=== PATIENT | male | born 1995 | race Caucasian/White ===

== ENCOUNTER 2018-04-19 00:19 | Emergency (ER) | payer SELFPAY ==
[2018-04-19] MEDS ORDERED: Dexamethasone IV* 4 MG/ML 1 ML (4 MG) IM ONE (01:27)
[2018-04-19 02:16] VITALS: BP 134/86
--- NOTE | 2018-04-19 02:30 | ED ---
Luigi Johnson Natalie, scribed for Colby Ware MD on 04/19/18 at 0118 . Throat Pain/Nasal Congestion - HPI Summary HPI Summary: The patient is a 22 y/o M presenting to the ED c/o sore throat with loss of voice starting last night. He has difficulty speaking due to loss of voice. He states it's "the worst sore throat he's ever had." The pain is aggravated by speaking. Pt denies fevers. He additionally c/o slight swelling and numbness in right foot that started in his foot and has moved up through his right ankle. The pain is aggravated with ambulation. - History of Current Complaint Chief Complaint: EDGeneral Time Seen by Provider: 04/19/18 00:56 Hx Obtained From: Patient Onset/Duration: Sudden Onset, Lasting Days, Still Present Severity: Moderate Associated Signs And Symptoms: Positive: Hoarseness Cough: None - Allergies/Home Medications Allergies/Adverse Reactions: Allergies Allergy/AdvReac Type Severity Reaction Status Date / Time No Known Allergies Allergy Verified 04/19/18 00:29 PMH/Surg Hx/FS Hx/Imm Hx Endocrine/Hematology History: Denies: Hx Diabetes Cardiovascular History: Denies: Hx Hypertension Infectious Disease History: No Infectious Disease History: Denies: Traveled Outside the [place] in Last 30 Days - Family History Known Family History: Negative: Respiratory Disease Review of Systems Negative: Fever Positive: Sore Throat, Other - hoarseness, difficulty speaking Positive: Numbness - in right foot and ankle All Other Systems Reviewed And Are Negative: Yes Physical Exam - Summary Physical Exam Summary: Appearance: Well appearing, no pain distress Skin: warm, dry, reflects adequate perfusion Head/face: normal Eyes: EOMI, CARLI ENT: normal, tonsils not englarged, not exudated, coarse hot potato voice Neck: supple, non-tender, no strider in neck Respiratory: CTA, breath sounds present Cardiovascular: RRR, pulses symmetrical Abdomen: non-tender, soft Bowel Sounds: present Musculoskeletal: normal, strength/ROM intact, intact sensation and redness in right lateral foot that fades Neuro: normal, sensory motor intact, A&Ox3 Triage Information Reviewed: Yes Vital Signs On Initial Exam: Initial Vitals Temp Pulse Resp BP Pulse Ox 97.8 F 102 18 110/88 97 04/19/18 00:25 04/19/18 00:25 04/19/18 00:25 04/19/18 00:25 04/19/18 00:25 Vital Signs Reviewed: Yes Diagnostics - Vital Signs Vital Signs Temp Pulse Resp BP Pulse Ox 04/19/18 00:25 97.8 F 102 18 110/88 97 - Laboratory Lab Statement: Any lab studies that have been ordered have been reviewed, and results considered in the medical decision making process. - Radiology Soft Tissue Neck XR Xray Interpretation: No Acute Changes Radiology Interpretation Completed By: Radiologist EENT Course/Dx - Course Course Of Treatment: Patient with a hoarse voice and recent URI symptoms. Also complains of a swelling in his foot. No swelling is seen. He states that his numb however he can feel all light touch and moves it normally. There is no stridor. X-ray of the soft tissues of the neck shows the epiglottis is normal in the soft tissue stripe is normal as well. The tonsils are normal and nontender. Treat for her laryngitis with intramuscular dexamethasone. - Differential Diagnoses Differential Diagnoses: Other - Tonsillitis, laryngitis, epiglottitis, peritonsillar abscess, retropharyngeal abscess - Diagnoses Provider Diagnoses: Laryngitis Discharge - Sign-Out/Discharge Documenting (check all that apply): Discharge/Admit/Transfer - Discharge Plan Condition: Improved Disposition: HOME Patient Education Materials: Laryngitis (ED) Referrals: [facility] [Outside] Additional Instructions: Stay well-hydrated. Tylenol, ibuprofen as needed for discomfort. Return with fevers, difficulty swallowing, worse or other concerns. Return with numbness/ weakness. - Billing Disposition and Condition Condition: IMPROVED Disposition: HOME The documentation as recorded by the Luigi ramsay Natalie accurately reflects the service I personally performed and the decisions made by me, Colby Ware MD.
--- NOTE | 2018-04-19 08:02 | RAD ---
Indication: Hoarseness and sore throat Comparison: None. Technique: AP and lateral views of the neck with soft tissue technique. Report: Unremarkable soft tissue contours. Pharyngeal, laryngeal, and tracheal air columns are normal in contour. The epiglottis is normal. The cervical spine and prevertebral soft tissues are normal. IMPRESSION: No acute abnormality. If the patient's symptoms persist, follow-up imaging is recommended.
== END 2018-04-19 02:17 | disposition home or self-care (01) ==
LOC: ED 00:19
DX: J04.0 Acute laryngitis (principal)
CPT/HCPCS: 70360; 96372; 99282; J1100

== ENCOUNTER 2020-02-21 22:25 | Emergency (ER) | payer OTHER, MEDICAID ==
[2020-02-21] MEDS ORDERED: NS 0.9% 1000 ML** 1,000 ML IV ONE (22:46)
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
[2020-02-21 23:25] LABS: ABS Lymphocytes 1.4 10^3/ul (1.0-4.8); ABS Monocytes 0.8 10^3/ul (0-0.8); ABS Neutrophils 7.6 10^3/ul (1.5-7.7); Eosinophil % 0.3 %; Hematocrit 45 % (42-52); Hemoglobin 15.7 g/dL (14.0-18.0); Lymphocyte % 13.9 %; Mean Corpuscular HGB Conc 35 g/dL (31-36); Mean Corpuscular Hemoglobin 30 pg (27-31); Mean Corpuscular Volume 87 fL (80-94); Mean Platelet Volume 7.8 fL (7.4-10.4); Platelet Count 287 10^3/uL (150-450); Red Blood Count 5.23 10^6 /uL (4.18-5.48); Red Cell Distribution Width 13 % (10-15); White Blood Count 9.9 10^3/uL (3.5-10.8)
[2020-02-21 23:40] LABS: ALT 40 U/L (7-52); AST 42 U/L (13-39); Albumin 4.9 g/dL (3.2-5.2); Albumin/Globulin Ratio 1.7 (1-3); Alkaline Phosphatase 122 U/L (34-104); Anion Gap 11 mmol/L (2-11); BUN/Creatinine Ratio 12.9 (8-20); Blood Urea Nitrogen 15 mg/dL (6-24); CO2 Carbon Dioxide 24 mmol/L (22-32); Calcium 9.6 mg/dL (8.6-10.3); Chloride 104 mmol/L (101-111); EGFR African American 95.3 (>60); EGFR Non-African American 78.7 (>60); Globulin 2.9 g/dL (2-4); Glucose 120 mg/dL (70-100); Potassium 2.8 mmol/L (3.5-5.0); Sodium 139 mmol/L (135-145); Total Protein 7.8 g/dL (6.4-8.9)
[2020-02-21] MEDS ORDERED: Potassium Chlor TAB* 20 MEQ TAB.ER PO ONE (23:58)
[2020-02-22 00:01] LABS: Alcohol < 10 mg/dL (<10)
[2020-02-22] MEDS ORDERED: Iohexol 300* (CONTRAST) 10 ML SDV IV ONE (00:10)
[2020-02-22 03:03] LABS: Urine Appearance Clear; Urine Bilirubin Negative (Negative); Urine Blood Negative (Negative); Urine Color Yellow; Urine Glucose Negative (Negative); Urine Ketones 1+ (Negative); Urine Nitrite Negative (Negative); Urine Protein Negative (Negative); Urine Specific Gravity 1.036 (1.010-1.030); Urine Urobilinogen Negative (Negative)
[2020-02-22 03:19] LABS: Urine Benzodiazepine Screen Presumptive Positive (None Detect); Urine Opiates Screen None Detected (None Detect)
[2020-02-22 04:04] VITALS: BP 133/96
== END 2020-02-22 04:02 | disposition home or self-care (01) ==
LOC: ED 22:25
DX: S80.11XA Contusion of right lower leg, initial encounter (principal); V49.88XA Car occupant (driver) (passenger) injured in other specified transport accidents, initial encounter; Y92.410 Unspecified street and highway as the place of occurrence of the external cause; R47.81 Slurred speech
CPT/HCPCS: 36415; 70450; 71260; 72125; 74177; 80053; 80307; 80320; 81003; 83605; 85025; 93005; 96360; 99284; A9270-GY; G0480; Q9967